=== PATIENT | female | born 1980 | race Caucasian/White ===

== ENCOUNTER → 2024-02-07 16:23 | Outpatient (REF) | payer BC, SELFPAY | LOC: WDC 16:23 | PROVIDERS: ATTENDING PHYSICIAN Nurse Practitioner Family | DX: Z12.31 Encounter for screening mammogram for malignant neoplasm of breast (principal) | CPT/HCPCS: 77063; 77067 ==

== ENCOUNTER → 2024-03-22 06:19 | Day surgery (SDC) | payer BC, SELFPAY | LOC: GI 06:19 | PROVIDERS: ATTENDING PHYSICIAN Internal Medicine Gastroenterology; FAMILY PHYSICIAN Nurse Practitioner Family | DX: Z12.11 Encounter for screening for malignant neoplasm of colon (principal); K64.8 Other hemorrhoids; K63.5 Polyp of colon | CPT/HCPCS: 45385; 88305 ==

== ENCOUNTER → 2025-02-12 16:11 | Outpatient (REF) | payer BC, SELFPAY | LOC: WDC 16:11 | PROVIDERS: ATTENDING PHYSICIAN Family Medicine | DX: Z12.31 Encounter for screening mammogram for malignant neoplasm of breast (principal) | CPT/HCPCS: 77063; 77067 ==

== ENCOUNTER → 2025-02-15 08:49 | Outpatient (REF) | payer BC, SELFPAY | LOC: RAD 08:49 | PROVIDERS: ATTENDING PHYSICIAN Family Medicine | DX: N92.3 Ovulation bleeding (principal) | CPT/HCPCS: 76830; 76856 ==